=== PATIENT | female | born 1990 | race Caucasian/White ===

== ENCOUNTER 2024-02-11 07:28 | Outpatient (CLI) | payer BC ==
[~2024-02-11] VITALS: Ht 154.9 cm; Wt 122.4 kg
[2024-02-11 07:52] VITALS: BP 120/73
[2024-02-11] MEDS ORDERED: ASPI81CH33 PO (08:12)
[2024-02-11] MEDS ORDERED: PRENTAB9 PO (08:12)
[2024-02-11] MEDS ORDERED: HOME MED LIST COMPLETE! XX SCH (08:15)
[2024-02-11 08:55] LABS: APPEARANCE, URINE CLEAR (CLEAR); BACTERIA, URINE AUTO NEGATIVE (NEGATIVE); BILIRUBIN, URINE AUTO NEGATIVE (NEGATIVE); BLOOD, URINE BLOOD NEGATIVE (NEGATIVE); COLOR, URINE STRAW (YELLOW); GLUCOSE, URINE (UA) AUTO NEGATIVE (NEGATIVE); KETONE, URINE AUTO NEGATIVE (NEGATIVE); LEUKOCYTE ESTERASE, URINE AUTO NEGATIVE (NEGATIVE); NITRITE, URINE AUTO NEGATIVE (NEGATIVE); PROTEIN, URINE AUTO NEGATIVE (NEGATIVE); RBC, URINE AUTO 0 /HPF (0-3); SPECIFIC GRAVITY URINE AUTO 1.004 (1.002-1.035); SQUAMOUS EPITHELIAL CELL UR AU 0 /HPF (0-6); UROBILINOGEN, URINE AUTO 0.2 mg/dL (0.0-2.0); WBC, URINE AUTO 1 /HPF (0-3)
== END 2024-02-11 10:21 | disposition home or self-care (01) ==
LOC: M LDO 07:28
PROVIDERS: ATTEND Obstetrics & Gynecology
DX: O36.8130 Decreased fetal movements, third trimester, not applicable or unspecified (principal); O26.853 Spotting complicating pregnancy, third trimester; O34.219 Maternal care for unspecified type scar from previous cesarean delivery; Z3A.33 33 weeks gestation of pregnancy
CPT/HCPCS: 59025; 76815; 76819; 76820; 81001; 87086; G0463